=== PATIENT | male | born 1995 | race African-American/Black ===

== ENCOUNTER 2016-12-01 22:30 | Emergency (ER) | payer BC ==
[~2016-12-01] VITALS: Ht 188 cm; Wt 88.6 kg
[2016-12-02] MEDS ORDERED: KETOROLAC 60MG/2ML VIAL IM ONE (02:30)
[2016-12-02 03:37] VITALS: BP 151/79
== END 2016-12-02 04:49 | disposition home or self-care (01) ==
LOC: ER 12-02 02:27
DX: S52.124A Nondisplaced fracture of head of right radius, initial encounter for closed fracture (principal); V00.131A Fall from skateboard, initial encounter; Y93.51 Activity, roller skating (inline) and skateboarding; Y92.89 Other specified places as the place of occurrence of the external cause
CPT/HCPCS: 73080; 96372; 99284; J1885; A4565